=== PATIENT | female | born 1985 | race Caucasian/White ===

== ENCOUNTER 2018-11-06 07:26 | Day surgery (SDC) | payer BC ==
[~2018-11-06 07:26] MED LIST: Bupivacaine 0.5% 50 ML MDV ONE; Lidocaine 1% with EPINEPHrine 1:100,000 50 ML MDV ONE
[2018-11-06] MEDS ORDERED: Midazolam 1 MG/ML 2 ML SDV ONE (07:38)
[2018-11-06] MEDS ORDERED: fentaNYL 100 MCG/2 ML SDV ONE (07:38)
[2018-11-06] MEDS ORDERED: Propofol 200 MG/20 ML SDV ONE ×2 (07:39→08:53)
[2018-11-06] MEDS ORDERED: Sodium Chloride 0.9% 1,000 ML IV SCH (08:00)
[2018-11-06] MEDS ORDERED: ceFAZolin 2 GM in Premix Bag 1 BAG IV ONE (08:00)
[2018-11-06] MEDS ORDERED: Acetaminophen/HYDROcodone 325-5 MG Tab PO PRN (09:23)
[2018-11-06] MEDS ORDERED: Ibuprofen 800 MG Tab PO PRN (10:04)
[2018-11-06 10:20] VITALS: BP 122/72
--- NOTE | 2018-11-09 09:06 | OR ---
DATE OF PROCEDURE: 11/06/2018 PROCEDURE: Excision of right breast lesion. COMPLICATIONS: None. VICE PRESIDENT DIGITAL STRATEGIST: None. ANESTHESIA: MAC/local. INDICATIONS: A pleasant 33-year-old female with a painful right breast mass, which was not imageable on ultrasound or mammogram, but palpable to the patient. PROCEDURE IN DETAIL: The patient was placed in supine position. A curvilinear incision was made on the medial aspect of the right nipple. This was carried down to the mass, which was then excised, which did not appear to be malignant. This was excised in total. There were two additional small areas in close approximation, which were also excised without difficulty. This was then irrigated. The wound was left open for 1 minute and observed for bleeding, none was noted. The wound was closed with 3-0 Vicryl and 4-0 Vicryl in interrupted and running fashion. Dermabond was applied. The patient tolerated the procedure well. Salas Young MD /[id number]
== END 2018-11-06 10:25 | disposition home or self-care (01) ==
LOC: JP.SDS 07:26
PROVIDERS: ATTEND Surgery
DX: N60.01 Solitary cyst of right breast (principal); F17.200 Nicotine dependence, unspecified, uncomplicated; E66.9 Obesity, unspecified; G47.8 Other sleep disorders
CPT/HCPCS: 19120; 81025; A9270; J0690; J2250; J2704; J3010; J3490; J7030; 88305